=== PATIENT | male | born 1960 | race Caucasian/White ===

== ENCOUNTER 2018-07-14 21:25 | Emergency (ER) | payer SELFPAY ==
--- NOTE | 2018-07-14 23:40 | PDOC ---
Medical Decision Making - Medical Decision Making 07/14/18 23:40 Patient seen by the advanced practice provider under my direct supervision. Ancillary testing reviewed as necessary. I agree with plan as outlined by the advanced practice provider. *DC/Admit/Observation/Transfer Diagnosis at time of Disposition: Heroin use, Homeless - Discharge Dispostion Condition at time of disposition: Fair - Referrals - Patient Instructions - Post Discharge Activity
[2018-07-15 00:08] VITALS: TEMP 98.1; BMI 24.8
--- NOTE | 2018-07-15 00:09 | PDOC ---
History of Present Illness - General Stated Complaint: DEHYDRATED Time Seen by Provider: 07/14/18 23:26 History Source: Patient Exam Limitations: No Limitations - History of Present Illness Initial Comments: 07/15/18 00:09 HISTORY OF PRESENT ILLNESS: This is 58-year-old undomiciled man presents emergency Department via ambulance for evaluation of right thigh pain for an unspecified amount of time. Patient denies any trauma or falls. Patient is unable to provide circumstances regarding onset, duration, character or severity of pain. No recent travel or sick contacts. PAST MEDICAL HISTORY: Denies past medical history SURGICAL HISTORY: Denies ALLERGIES: No known drug allergies REVIEW OF SYSTEMS General/Constitutional: Denies fever or chills. Denies weakness, weight change. HEENT: Denies change in vision. Denies ear pain or discharge. Denies sore throat. Cardiovascular: Denies chest pain or shortness of breath. Respiratory: Denies cough, wheezing, or hemoptysis. Gastrointestinal: Denies nausea, vomiting, diarrhea or constipation. Denies rectal bleeding. Genitourinary: Denies dysuria, frequency, or change in urination. Musculoskeletal: see HPI Skin and breasts: Denies rash or easy bruising. Neurologic: Denies headache, vertigo, loss of consciousness, or loss of sensation. Psychiatric: Denies depression or anxiety. Endocrine: Denies increased thirst. Denies abnormal weight change. Hematologic/Lymphatic: Denies anemia, easy bleeding, or history of blood clots. Allergic/Immunologic: Denies hives or skin allergy. Denies latex allergy. PHYSICAL EXAM General Appearance: Well-appearing, appropriately dressed. No apparent distress , no intoxication. Cardiovascular: RRR. S1, S2. No JVD, murmur, bradycardia, tachycardia. Vascular Pulses: Dorsalis-Pedis (R): 2+, Dorsalis-Pedis (L): 2+ Musculoskeletal/Extremities: Normal inspection. FROM of all extremities, normal capillary refill. Pelvis Stable. No CVA tenderness. No tenderness to extremities, pedal edema, swelling, erythema or deformity. TTP over right mid- thigh. No deformity present. No shortening or rotation of either lower extremity. Integumentary: Appropriate color, dry, warm. No cyanosis, erythema, jaundice or rash Neurologic: ross furnace operator II-XII intact. Fully oriented, alert. Appropriate mood/affect. Motor strength 5/5. No appreciable EOM palsy, facial droop or sensory deficit. 07/15/18 03:01 Past History - Past Medical History Allergies/Adverse Reactions: Allergies Allergy/AdvReac Type Severity Reaction Status Date / Time No Known Allergies Allergy Verified 07/15/18 00:09 - Suicide/Smoking/Psychosocial Hx Smoking History: Current some day smoker Have you smoked in the past 12 months: Yes Information on smoking cessation initiated: No Hx Alcohol Use: Yes Drug/Substance Use Hx: Yes (heroin, cocaine) *Physical Exam - Vital Signs Last Vital Signs Temp Pulse Resp BP Pulse Ox 98.1 F 101 H 18 116/84 97 07/14/18 21:25 07/14/18 21:25 07/14/18 21:25 07/14/18 21:25 07/14/18 21:25 Medical Decision Making - Medical Decision Making 07/15/18 02:59 A/P: 58-year-old male with atraumatic right hip pain for an unspecified amount of time Tender to palpation over right trochanter and midshaft femur No shortening or rotation of the lower extremities 2+ DP pulses Patient is refusing x-rays at this time. Patient continues to use [place] abusive language towards radiology staff as well as myself. Patient is to be discharged follow-up with his primary doctor for reevaluation. *DC/Admit/Observation/Transfer Diagnosis at time of Disposition: Heroin use, Homeless, Malingering Thigh pain Qualifiers: Laterality: right Qualified Code(s): M79.651 - Pain in right thigh - Discharge Dispostion Disposition: HOME Condition at time of disposition: Fair Decision to Admit order: No - Referrals Referrals: [facility] [place] [facility] [place] [Provider Group] - Patient Instructions Additional Instructions: Avoid drug use. Eat a well-balanced diet. Call your regular doctor for reevaluation. Return to ER for any new or worsening symptoms. - Post Discharge Activity
[2018-07-15 05:27] VITALS: BP 117/88; PULSE 95
== END 2018-07-15 05:28 | disposition home or self-care (01) ==
LOC: JER 21:25
DX: M79.651 Pain in right thigh (principal); F11.10 Opioid abuse, uncomplicated; F17.210 Nicotine dependence, cigarettes, uncomplicated; Z76.5 Malingerer [conscious simulation]; Z59.0 Homelessness
CPT/HCPCS: 99282-25